=== PATIENT | male | born 1990 | race Caucasian/White ===

== ENCOUNTER 2021-10-14 22:45 | Emergency (ER) | payer OTHER ==
[~2021-10-14] VITALS: Ht 175.3 cm; Wt 99.8 kg
--- NOTE | 2021-10-14 23:00 | NUR ---
BIBS C/O R INDEX FINGER INJURY AT 10 PM WITH LEG PRESS MACHINE >500LBS; MINIMAL BLEEDING NOTED. PT A/OX4. TOLERATING R/A WELL; RESP EVEN AND NON LABORED.
[2021-10-14] MEDS ORDERED: TDAP [DIPH/PERTUSSIS/TET] 0.5 ML VIAL IM ONE ×3 (23:30→23:58)
--- NOTE | 2021-10-15 00:01 | NUR ---
EMT AT PT'S BEDSIDE FOR WOUNDCARE TO FINGER
[2021-10-15] MEDS ORDERED: CEPH500T PO (00:05)
[2021-10-15] MEDS ORDERED: HYDROCODONE/APAP 5/325MG TABLET ONE (00:28)
[2021-10-15] MEDS ORDERED: CEPHALEXIN MONOHYDRATE 500 MG CAPSULE PO ONE ×2 (00:29→00:30)
[2021-10-15] MEDS ORDERED: HYDROCODONE/APAP 5/325MG TABLET PO ONE (00:30)
--- NOTE | 2021-10-15 00:46 | NUR ---
DR. CAMERON BERMAN AT PT'S BEDSIDE FOR SUTURES TO LAC ON RIGHT INDEX FINGER
[2021-10-15 01:07] VITALS: BP 138/81
--- NOTE | 2021-10-15 01:07 | NUR ---
Patient discharged to home in stable condition. Written and verbal after care instructions given. Patient verbalizes understanding of instruction. PT ambulatory with a steady gait
== END 2021-10-15 01:08 | disposition home or self-care (01) ==
LOC: ER 22:54
DX: S62.630A Displaced fracture of distal phalanx of right index finger, initial encounter for closed fracture (principal); S61.210A Laceration without foreign body of right index finger without damage to nail, initial encounter; Z79.899 Other long term (current) drug therapy; W23.1XXA Caught, crushed, jammed, or pinched between stationary objects, initial encounter; Y93.89 Activity, other specified; Y92.89 Other specified places as the place of occurrence of the external cause; Y99.8 Other external cause status
CPT/HCPCS: 99283; 12001; 90715; 73140; 90471; A6403 ×3